=== PATIENT | male | born 1950 | race Caucasian/White ===

== ENCOUNTER 2022-02-05 23:21 | Emergency (ER) | payer SELFPAY ==
[~2022-02-05] VITALS: Ht 175.3 cm; Wt 93.0 kg
[2022-02-05] MEDS ORDERED: PHENYLEPHRINE HCL 0.5% 15ML NASAL SPRAY BOTHNSTRLS ONE (23:30)
[2022-02-06 00:23] LABS: HEMATOCRIT. 37.9 % (42.0-52.0); HEMOGLOBIN. 12.7 g/dL (14.0-18.0); MEAN CORPUSCULAR HEMOGLOBIN 31.1 pg (28.0-32.0); MEAN CORPUSCULAR VOLUME 92.4 fL (80.0-94.0); MEAN PLATELET VOLUME 8.6 fl (7.4-10.4); PLATELET 147 x1000/uL (130-400); RED CELL DISTRIBUTION WIDTH 14.2 % (11.6-14.6)
[2022-02-06 00:37] LABS: CHLORIDE 113 mEq/L (98-107)
[2022-02-06 01:37] VITALS: BP 155/74
[2022-02-06 02:26] LABS: PLATELET ESTIMATE NORMAL
== END 2022-02-06 03:10 | disposition home or self-care (01) ==
LOC: ER 23:21
DX: R04.0 Epistaxis (principal); I10 Essential (primary) hypertension; Z85.528 Personal history of other malignant neoplasm of kidney; Z90.5 Acquired absence of kidney
CPT/HCPCS: 36415; 80053; 85025; 99283